=== PATIENT | male | born 2000 | race Hispanic/Latino ===

== ENCOUNTER 2023-07-12 13:16 | Emergency (ER) | payer OTHER ==
[~2023-07-12] VITALS: Ht 175.3 cm; Wt 79.4 kg
[2023-07-12 13:27] VITALS: BP 147/95; PULSE 87; RESP 18
[2023-07-12] MEDS: KETOROLAC 15MG/ML VIAL (15MG/ML) IM STA (14:19)
[2023-07-12] MEDS ORDERED: IBUP-2077 PO (16:39)
== END 2023-07-12 16:43 | disposition home or self-care (01) ==
LOC: EDH 13:16
DX: M25.561 Pain in right knee (principal)
CPT/HCPCS: 99284; 73590; 73564; 96372; J1885

== ENCOUNTER 2023-11-09 07:15 | Observation (INO) | payer OTHER ==
[2023-11-08 09:31] LABS: BASOPHILS # (AUTO) 0.06 K/uL (0.00-0.20); BASOPHILS % (AUTO) 0.7 % (0.0-5.0); EOSINOPHILS # (AUTO) 0.14 K/uL (0.00-0.70); EOSINOPHILS % (AUTO) 1.6 % (0.0-8.0); HEMATOCRIT 50.5 % (42-54); IMMATURE GRANULOCYTE ABSOLUTE 0.12 K/uL (0-1); LYMPHOCYTES # (AUTO) 1.7 K/uL (1.0-4.8); LYMPHOCYTES % (AUTO) 19.6 % (21.0-51.0); MEAN CORPUSCULAR HEMOGLOBIN 29.7 pg (27.0-33.0); MEAN CORPUSCULAR HGB CONC 33.5 g/dL (32.0-36.0); MEAN CORPUSCULAR VOLUME 88.8 fL (79-99); MONOCYTES # (AUTO) 0.8 K/uL (0.1-1.0); MONOCYTES % (AUTO) 8.9 % (3.0-13.0); NEUTROPHILS % (AUTO) 67.8 % (40.0-77.0); PLATELET COUNT (AUTO) 178 K/uL (130-400); RED BLOOD CELL COUNT(AUTO) 5.69 MIL/uL (4.50-6.20); RED CELL DISTRIBUTION WIDTH 12.6 % (11.0-15.5); WHITE BLOOD COUNT (AUTO) 8.9 K/uL (4.8-10.8)
[2023-11-08 09:41] LABS: POTASSIUM 4.1 mmol/L (3.5-5.1)
[2023-11-08 09:55] VITALS: BP 145/91; PULSE 57; RESP 18; TEMP 97.1
[2023-11-08 10:04] LABS: INR 0.98 (0.85-1.15); PROTHROMBIN TIME 10.6 SEC (9.6-11.6)
[2023-11-08 10:05] LABS: PARTIAL THROMBOPLASTIN TIME 28.6 SEC (26.3-35.5)
[2023-11-09] VITALS (25 sets, daily range): BP systolic 122–150; BP diastolic 77–92; PULSE 61–92; RESP 12–20; TEMP 98–99.1; O2SAT 95
[~2023-11-09] VITALS: Ht 175.3 cm; Wt 89.6 kg
[~2023-11-09 07:15] MED LIST: FENTanyl CITRate PF 50 MCG/1 ML 2ML VIAL ONE; GLYCOPYRROLATE 0.2 MG/ML 5 ML VIAL ONE; LIDOCAINE PF 100MG/5ML (2%) SYRINGE 5ML ONE; MIDAZOLAM HCL 1 MG/ML 2ML VIAL ONE; NEOSTIGMINE METHYLSULFATE 1MG/ML IV ONE; ROPivacaine 0.5% 5MG/ML 30ML ONE; ceFAZolin SODIUM 2 GM VIAL IVPB PRN; dexaMETHasone SOD PHOSPHATE 10MG/ML 1ML VIAL ONE; ondanSETRON 4MG INJ ONE; proPOFol 10 MG/ML 20ML VIAL IV ONE; rocuRONium bROMide 10MG/1ML 5ML VL ONE
[2023-11-09] MEDS: ceFAZolin SODIUM 2 GM VIAL ONE (07:23)
[2023-11-09] MEDS: LACTATED RINGERS 1000ML 1,000 ML IV ONE (07:24)
[2023-11-09] MEDS: ceFAZolin SODIUM 2 GM VIAL IVPB ONE (08:15)
[2023-11-09] MEDS ORDERED: FENTanyl CITRate PF 50 MCG/1 ML 2ML VIAL ONE ×2 (08:37→11:18)
[2023-11-09] MEDS ORDERED: ketaMINE 50MG/ML SYRINGE 50 MG/ML DISP.SYRIN ONE (08:43)
[2023-11-09] MEDS ORDERED: rocuRONium bROMide 10MG/1ML 5ML VL ONE (10:51)
[2023-11-09] MEDS ORDERED: ketOROlac 30MG VIAL (30MG/ML) ONE (11:24)
[2023-11-09] MEDS ORDERED: BUPIvacaine/PF 0.5% 30ML VIAL ONE (11:24)
[2023-11-09] MEDS ORDERED: FERROUS FUMARATE 324 MG TABLET PO PRN (12:00)
[2023-11-09] MEDS ORDERED: PoTASSium chl 10% ELIXIR 20MEQ 20 MEQ/15 ML UDCUP PO PRN (12:00)
[2023-11-09] MEDS ORDERED: DiphenhydrAMINE HCL 50 MG/ML VIAL IVP PRN (12:00)
[2023-11-09] MEDS ORDERED: PoTASSium chloRIDE 20MEQ/100ML 100 ML IV PRN (12:00)
[2023-11-09] MEDS: PSYLLIUM SEED 1 EACH PACKET PO SCH (12:00)
[2023-11-09] MEDS ORDERED: ketOROlac 15MG/ML VIAL (15MG/ML) IV PRN (12:00)
[2023-11-09] MEDS ORDERED: traMADol HCL 50 MG TABLET PO PRN (12:00)
[2023-11-09] MEDS ORDERED: PoTASSium chloRIDE 20MEQ ER 20 MEQ ERTAB PO PRN (12:00)
[2023-11-09] MEDS ORDERED: ceFAZolin SODIUM 2 GM VIAL IVPB SCH (12:00)
[2023-11-09] MEDS ORDERED: CALCIUM CARB 500MG PO PRN (12:00)
[2023-11-09] MEDS ORDERED: DiphenhydrAMINE HCL 25 MG CAPSULE PO PRN (12:00)
[2023-11-09] MEDS ORDERED: HYDR-4060 PO (13:38)
[2023-11-09] MEDS ORDERED: DOCU-116 PO (13:38)
[2023-11-09] MEDS: HYDROcodone/APAP 5/325 1 TAB TABLET ONE (14:33)
[2023-11-09] MEDS: 0.9%NACL 1000ML 1,000 ML IV SCH (16:57)
[2023-11-09] MEDS: ceFAZolin SODIUM 2 GM VIAL IVPB SCH (18:06)
[2023-11-09] MEDS: HYDROcodone/APAP 5/325 1 TAB TABLET PO PRN (19:09)
[2023-11-10 03:04] VITALS: BP_SYST 145; BP_SYST 158; BP_DIAS 71; BP_DIAS 76; PULSE 74; PULSE 78; RESP 18; TEMP 97.6; TEMP 98.5
[2023-11-10 05:22] LABS: HEMATOCRIT 37.5 % (42-54); MEAN CORPUSCULAR HGB CONC 34.7 g/dL (32.0-36.0); MEAN CORPUSCULAR VOLUME 86.6 fL (79-99); RED BLOOD CELL COUNT(AUTO) 4.33 MIL/uL (4.50-6.20); RED CELL DISTRIBUTION WIDTH 12.7 % (11.0-15.5); WHITE BLOOD COUNT (AUTO) 13.3 K/uL (4.8-10.8)
[2023-11-10 05:36] LABS: POTASSIUM 3.6 mmol/L (3.5-5.1)
[2023-11-10 08:00] VITALS: BP 147/90; PULSE 67; RESP 20; TEMP 98.3
[2023-11-10] MEDS: polyETHYLene GLYCol 3350 17 GM POWD.PACK PO SCH (08:40)
[2023-11-11] MEDS ORDERED: BisaCODYL 5 MG TABLET.DR PO PRN (12:00)
[2023-11-12] MEDS ORDERED: BisaCODYL 10 MG SUPP.RECT RC PRN (12:00)
== END 2023-11-10 12:45 | disposition home or self-care (01) ==
LOC: DAH 07:15 → DAHIP 07:16 → DAH 07:16 → EDSTATUS 09:00 → 4CH 15:20
PROVIDERS: ADMIT Student in an Organized Health Care Education/Training Program; ATTEND Student in an Organized Health Care Education/Training Program
DX: S82.251 Displaced comminuted fracture of shaft of right tibia (principal); M25.561 Pain in right knee; Z86.2 Personal history of diseases of the blood and blood-forming organs and certain disorders involving the immune mechanism; Z79.899 Other long term (current) drug therapy; X58.XXXD Exposure to other specified factors, subsequent encounter
CPT/HCPCS: 80048 ×2; 85025; 85610; 85730; 36415 ×2; 87641; 27720; 96365; 73590; 97161; 97116 ×2; 97530 ×2; 96366; 85027; C1713 ×5; G0378 ×21; J7120 ×2; A4215 ×2; A4649 ×3; J3010 ×3; J1100; J3490 ×4; J2001; J2250; J2704; J2405; J1885; J2710; J0665; J2795; J0690 ×4; A6223; A4930; A6255; A5120; A4223; A4222; A4221; A4663

== ENCOUNTER → 2024-02-07 | Outpatient (CLI) | payer OTHER ==
[~2024-02-07] MED LIST changes: +DOCU-116 PO; -FENTanyl CITRate PF 50 MCG/1 ML 2ML VIAL ONE; -GLYCOPYRROLATE 0.2 MG/ML 5 ML VIAL ONE; +HYDR-4060 PO; -LIDOCAINE PF 100MG/5ML (2%) SYRINGE 5ML ONE; -MIDAZOLAM HCL 1 MG/ML 2ML VIAL ONE; -NEOSTIGMINE METHYLSULFATE 1MG/ML IV ONE; -ROPivacaine 0.5% 5MG/ML 30ML ONE; -ceFAZolin SODIUM 2 GM VIAL IVPB PRN; -dexaMETHasone SOD PHOSPHATE 10MG/ML 1ML VIAL ONE; -ondanSETRON 4MG INJ ONE; -proPOFol 10 MG/ML 20ML VIAL IV ONE; -rocuRONium bROMide 10MG/1ML 5ML VL ONE
== END | disposition home or self-care (01) ==
LOC: LAB 12:05
PROVIDERS: ATTEND Student in an Organized Health Care Education/Training Program
DX: T81.49XA Infection following a procedure, other surgical site, initial encounter (principal); X58.XXXA Exposure to other specified factors, initial encounter; Y93.89 Activity, other specified; Y92.89 Other specified places as the place of occurrence of the external cause; Y99.8 Other external cause status
CPT/HCPCS: 87070; 87076; 87205

== ENCOUNTER 2024-02-29 05:54 | Day surgery (SDC) | payer OTHER ==
[2024-02-27 12:59] LABS: BASOPHILS # (AUTO) 0.03 K/uL (0.00-0.20); BASOPHILS % (AUTO) 0.5 % (0.0-5.0); EOSINOPHILS # (AUTO) 0.05 K/uL (0.00-0.70); EOSINOPHILS % (AUTO) 0.8 % (0.0-8.0); HEMATOCRIT 49.8 % (42-54); IMMATURE GRANULOCYTE ABSOLUTE 0.04 K/uL (0-1); LYMPHOCYTES # (AUTO) 1.3 K/uL (1.0-4.8); MEAN CORPUSCULAR HEMOGLOBIN 24.9 pg (27.0-33.0); MEAN CORPUSCULAR HGB CONC 31.5 g/dL (32.0-36.0); MEAN CORPUSCULAR VOLUME 78.9 fL (79-99); MONOCYTES # (AUTO) 0.5 K/uL (0.1-1.0); MONOCYTES % (AUTO) 7.6 % (3.0-13.0); NEUTROPHILS # (AUTO) 4.4 K/uL (1.8-7.7); NEUTROPHILS % (AUTO) 69.5 % (40.0-77.0); PLATELET COUNT (AUTO) 212 K/uL (130-400); RED BLOOD CELL COUNT(AUTO) 6.31 MIL/uL (4.50-6.20); RED CELL DISTRIBUTION WIDTH 15.8 % (11.0-15.5); WHITE BLOOD COUNT (AUTO) 6.3 K/uL (4.8-10.8)
[2024-02-27 13:11] LABS: POTASSIUM 4.6 mmol/L (3.5-5.1)
[2024-02-27 13:12] LABS: INR 0.95 (0.85-1.15); PROTHROMBIN TIME 10.7 SEC (9.6-11.6)
[2024-02-27 13:13] LABS: PARTIAL THROMBOPLASTIN TIME 28.8 SEC (26.3-35.5)
[2024-02-27 13:25] VITALS: BP 153/87; PULSE 71; RESP 14; TEMP 98.1
[2024-02-27 15:19] LABS: ERYTHROCYTE SEDIMENTATION RATE 1 MM/HR (0-15)
[~2024-02-29] VITALS: Ht 175.3 cm; Wt 86.9 kg
[2024-02-29] VITALS (12 sets, daily range): BP systolic 106–128; BP diastolic 55–80; PULSE 51–65; RESP 15–18; TEMP 97–97.4
[2024-02-29] MEDS ORDERED: acetaMINOPHEN 100 ML ONE (06:35)
[2024-02-29] MEDS ORDERED: FAMOTIDINE 20MG VIAL IV ONE (06:35)
[2024-02-29] MEDS ORDERED: ketaMINE 50MG/ML SYRINGE 50 MG/ML DISP.SYRIN ONE (06:38)
[2024-02-29] MEDS ORDERED: LIDOCAINE PF 100MG/5ML (2%) SYRINGE 5ML ONE (06:45)
[2024-02-29] MEDS ORDERED: proPOFol 10 MG/ML 20ML VIAL IV ONE (06:46)
[2024-02-29] MEDS ORDERED: rocuRONium bROMide 10MG/1ML 5ML VL ONE (06:46)
[2024-02-29] MEDS ORDERED: FENTanyl CITRate PF 50 MCG/1 ML 2ML VIAL ONE (06:46)
[2024-02-29] MEDS: ceFAZolin SODIUM 2 GM VIAL ONE (07:32)
[2024-02-29] MEDS: LACTATED RINGERS 1000ML 1,000 ML IV ONE (07:32)
[2024-02-29] MEDS ORDERED: ceFAZolin SODIUM 1 GM VIAL ONE (07:58)
[2024-02-29] MEDS ORDERED: dexaMETHasone SOD PHOSPHATE 10MG/ML 1ML VIAL ONE (08:01)
[2024-02-29] MEDS ORDERED: ondanSETRON 4MG INJ ONE (08:02)
[2024-02-29] MEDS ORDERED: ACET-2079 PO (09:14)
[2024-02-29] MEDS ORDERED: GLYCOPYRROLATE 0.2 MG/ML 5 ML VIAL ONE (09:15)
[2024-02-29] MEDS ORDERED: NEOSTIGMINE METHYLSULFATE 1MG/ML IV ONE (09:15)
[2024-02-29] MEDS: BUPIvacaine/PF 0.25% 30ML VIAL IJ ONE (09:25)
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
--- NOTE | 2024-02-29 11:49 | HMCIMG ---
TIBIA/FIBULA 2VWS RT HISTORY: ORIF COMPARISON: None TECHNIQUE: Fluoroscopic images of right tibia and fibula were obtained. FINDINGS: Please see procedure report by referring physician. IMPRESSION: 1. Findings as described above.
== END 2024-02-29 10:44 | disposition home or self-care (01) ==
LOC: DAH 05:54
PROVIDERS: ATTEND Student in an Organized Health Care Education/Training Program
DX: S82.251 Displaced comminuted fracture of shaft of right tibia (principal); M96.671 Fracture of tibia or fibula following insertion of orthopedic implant, joint prosthesis, or bone plate, right leg; M79.661 Pain in right lower leg; L08.89 Other specified local infections of the skin and subcutaneous tissue; V89.2XXD Person injured in unspecified motor-vehicle accident, traffic, subsequent encounter; Y83.1 Surgical operation with implant of artificial internal device as the cause of abnormal reaction of the patient, or of later complication, without mention of misadventure at the time of the procedure
CPT/HCPCS: 80048; 85025; 85610; 85730; 85651; 86140; 36415; 87641; 11044; 20680; 87070; 87076; 87086; 87186; 87205; 88300; 73590; A4663; J7030; A4649; J7120; J3490 ×4; J3010; J1100; J0665; J2003; J2704; J2405; J2710; J0690; A6223; A4930; C1713; A5120; A4215; A4223; A4222; A4221; A6450

== ENCOUNTER 2024-03-21 08:40 | Day surgery (SDC) | payer OTHER ==
[2024-03-20 11:33] VITALS: BP 149/80; PULSE 89; RESP 18; TEMP 97.9
[2024-03-20 12:27] LABS: BASOPHILS # (AUTO) 0.06 K/uL (0.00-0.20); BASOPHILS % (AUTO) 0.6 % (0.0-5.0); EOSINOPHILS # (AUTO) 0.11 K/uL (0.00-0.70); EOSINOPHILS % (AUTO) 1.2 % (0.0-8.0); HEMATOCRIT 46.1 % (42-54); IMMATURE GRANULOCYTE ABSOLUTE 0.12 K/uL (0-1); LYMPHOCYTES # (AUTO) 1.2 K/uL (1.0-4.8); LYMPHOCYTES % (AUTO) 13.1 % (21.0-51.0); MEAN CORPUSCULAR HEMOGLOBIN 24.9 pg (27.0-33.0); MEAN CORPUSCULAR HGB CONC 31.5 g/dL (32.0-36.0); MEAN CORPUSCULAR VOLUME 79.1 fL (79-99); MONOCYTES # (AUTO) 0.5 K/uL (0.1-1.0); MONOCYTES % (AUTO) 5.2 % (3.0-13.0); NEUTROPHILS # (AUTO) 7.3 K/uL (1.8-7.7); NEUTROPHILS % (AUTO) 78.6 % (40.0-77.0); PLATELET COUNT (AUTO) 364 K/uL (130-400); RED BLOOD CELL COUNT(AUTO) 5.83 MIL/uL (4.50-6.20); RED CELL DISTRIBUTION WIDTH 15.9 % (11.0-15.5); WHITE BLOOD COUNT (AUTO) 9.3 K/uL (4.8-10.8)
[2024-03-20 12:40] LABS: INR 0.97 (0.85-1.15); PROTHROMBIN TIME 10.9 SEC (9.6-11.6)
[2024-03-20 12:41] LABS: PARTIAL THROMBOPLASTIN TIME 30.8 SEC (26.3-35.5)
[2024-03-20 12:47] LABS: ALBUMIN 3.3 g/dL (3.5-5.0)
[2024-03-20 13:42] LABS: ERYTHROCYTE SEDIMENTATION RATE 45 MM/HR (0-15)
[~2024-03-21] VITALS: Ht 175.3 cm; Wt 83.8 kg
[2024-03-21] VITALS (14 sets, daily range): BP systolic 125–154; BP diastolic 78–89; PULSE 70–92; RESP 13–18; TEMP 97.1–97.7
[~2024-03-21 08:40] MED LIST changes: +ACET-2079 PO; -DOCU-116 PO; -HYDR-4060 PO; +LEVO-70 PO
[2024-03-21] MEDS: LACTATED RINGERS 1000ML 1,000 ML IV ONE (09:38)
[2024-03-21] MEDS: ceFAZolin SODIUM 2 GM VIAL ONE (09:38)
[2024-03-21] MEDS ORDERED: LIDOCAINE PF 100MG/5ML (2%) SYRINGE 5ML ONE (10:29)
[2024-03-21] MEDS ORDERED: rocuRONium bROMide 10MG/1ML 5ML VL ONE (10:29)
[2024-03-21] MEDS ORDERED: ondanSETRON 4MG INJ ONE (10:29)
[2024-03-21] MEDS ORDERED: MIDAZOLAM HCL 1 MG/ML 2ML VIAL ONE (10:29)
[2024-03-21] MEDS ORDERED: proPOFol 10 MG/ML 20ML VIAL IV ONE (10:29)
[2024-03-21] MEDS ORDERED: dexaMETHasone SOD PHOSPHATE 4 MG/ML 1ML VIAL ONE (10:29)
[2024-03-21] MEDS ORDERED: FENTanyl CITRate PF 50 MCG/1 ML 2ML VIAL ONE ×2 (10:30→11:34)
[2024-03-21] MEDS ORDERED: ketOROlac 30MG VIAL (30MG/ML) ONE (10:32)
[2024-03-21] MEDS ORDERED: ROPivacaine 0.5% 5MG/ML 30ML ONE (10:35)
[2024-03-21] MEDS ORDERED: SUGAMMADEX SODIUM 200 MG/2 ML VIAL IV ONE (13:17)
[2024-03-21] MEDS: MEPERIDINE-PF 50 MG/ML SYG ONE (14:14)
[2024-03-21] MEDS ORDERED: HYDR-4060 PO (14:23)
[2024-03-21] MEDS ORDERED: LEVO-70 PO (14:23)
--- NOTE | 2024-03-21 14:50 | NUR ---
dressing: dressing to right leg dry/intact with no active bleeding present. immobilizer in place to rt leg.
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
--- NOTE | 2024-03-21 15:48 | HMCIMG ---
TIBIA/FIBULA 2VWS RT REASON: ORIF RIGHT TIBIA, HARDWARE REMOVAL, SX TECHNIQUE: 14 surgical spot views were obtained. These document hardware removal procedure right tibia and fibula. Fluoroscopy time was 60.4 seconds. IMPRESSION: 1. Documentation of hardware removal procedure right tibia.
== END 2024-03-21 15:20 | disposition home or self-care (01) ==
LOC: DAH 08:40
PROVIDERS: ATTEND Student in an Organized Health Care Education/Training Program
DX: T84.622A Infection and inflammatory reaction due to internal fixation device of right tibia, initial encounter (principal); S82.251 Displaced comminuted fracture of shaft of right tibia; M79.661 Pain in right lower leg; G89.18 Other acute postprocedural pain; E66.9 Obesity, unspecified; Z79.899 Other long term (current) drug therapy; Z87.898 Personal history of other specified conditions; Z68.26 Body mass index [BMI] 26.0-26.9, adult; Z98.890 Other specified postprocedural states; Y83.8 Other surgical procedures as the cause of abnormal reaction of the patient, or of later complication, without mention of misadventure at the time of the procedure; Y92.89 Other specified places as the place of occurrence of the external cause
CPT/HCPCS: 82040; 80048; 85025; 85610; 85730; 85651; 84134; 86140; 36415; 87641; 11044; 97161; 20680; 87070 ×2; 87076 ×2; 87086; 87186; 87205 ×2; 73590; 97116; 97530 ×2; J1100; J1885; A4663; J7120; J3010 ×2; J3490; J2003; J2250; J2704; J2405; J2175; J2795; J0690; A6223; A4649; A5120; A4215; A4223; A4222; A4221

== ENCOUNTER 2024-04-14 07:06 | Inpatient (IN) | payer OTHER ==
[~2024-04-14] VITALS: Ht 175.3 cm; Wt 85.0 kg
[~2024-04-14 07:06] MED LIST changes: -ACET-2079 PO; +HYDR-4060 PO
[2024-04-14] MEDS ORDERED: MAG/ALUM/SIMETH 30 ML UDCUP PO PRN (08:30)
[2024-04-14] MEDS ORDERED: acetaMINOPHEN 325 MG TAB PO PRN (08:30)
[2024-04-14] MEDS ORDERED: MAGNESIUM HYDROXIDE 30 ML/UDCUP PO PRN (08:30)
[2024-04-14] MEDS ORDERED: acetaMINOPHEN WITH coDEINE 1 TAB TAB PO PRN ×2 (08:30)
[2024-04-14 08:48] LABS: HEMATOCRIT 44.7 % (42-54); MEAN CORPUSCULAR HGB CONC 31.3 g/dL (32.0-36.0); MEAN CORPUSCULAR VOLUME 79.8 fL (79-99); PLATELET COUNT (AUTO) 236 K/uL (130-400); RED CELL DISTRIBUTION WIDTH 16.1 % (11.0-15.5); WHITE BLOOD COUNT (AUTO) 7.1 K/uL (4.8-10.8)
[2024-04-14 08:57] LABS: CREATININE 0.9 mg/dL (0.5-1.3); POTASSIUM 3.9 mmol/L (3.5-5.1)
[2024-04-14 09:43] LABS: BAND NEUTROPHILS % (MANUAL) 3 % (0-2); LYMPHOCYTES % (MANUAL) 20 % (22-44); MAN.DIFF COMMENT-IMPRESSION MANUAL DIFFERENTIAL; MONOCYTES % (MANUAL) 7 % (2-9); PLATELET MORPHOLOGY COMMENT ADEQUATE; SEGMENTED NEUTROPHILS % 70 % (40-70); TOTAL CELLS COUNTED 100; WBC MORPHOLOGY CONSISTENT W/DIFF
[2024-04-14 10:07] LABS: ERYTHROCYTE SEDIMENTATION RATE 5 MM/HR (0-15)
--- NOTE | 2024-04-14 10:31 | NUR ---
DR KHALIL MADE AWARE OF INFECTIOUS DISEASE CONSULT
[2024-04-14] MEDS: PENICILLIN V POTASSIUM 500 MG TABLET PO SCH (11:36)
[2024-04-14] MEDS: DEXTROSE 5 % AND 0.9 % NACL 1,000 ML IV SCH (11:37)
[2024-04-14] MEDS: levoFLOXacin 500 MG TABLET PO SCH (11:37)
--- NOTE | 2024-04-14 12:39 | HMCIMG ---
CHEST 1VW HISTORY: PICC line placement COMPARISON: None FINDINGS: A frontal projection of the chest was obtained. No acute pulmonary infiltrates is seen. The heart is borderline enlarged. All the lines and tubes are again seen in place. PICC line is seen entering from the right with distal tip in plane of the superior vena cava. No evidence of aortic calcification is seen. IMPRESSION: 1. No acute pulmonary infiltrate is seen.
[2024-04-14] MEDS ORDERED: VANCOMYCIN PROTOCOL PER PHARMACY IV SCH (13:30)
[2024-04-14] MEDS: ceFEPime HCL 1 GM VIAL IVPB SCH (13:41)
--- NOTE | 2024-04-14 15:15 | NUR ---
DR KHALIL HERE TO SEE THE PT W/HIS RESIDENTS.
[2024-04-14] MEDS: VANCOMYCIN 1G/250ML KIT 500 ML IV ONE (15:34)
[2024-04-14] MEDS: VANCOMYCIN 2GM/500 ML BAG 500 ML IV ONE (15:34)
--- NOTE | 2024-04-14 16:27 | HMCIMG ---
TIBIA/FIBULA 2VWS RT HISTORY: Removal of implants COMPARISON: None TECHNIQUE: 3 images of right tibia and fibula were obtained. FINDINGS: Intramedullary pilar is seen through the fracture site of the right tibia. Healing fracture is seen of right distal fibula. There is no acute displaced fracture or dislocation. Degenerative changes are seen. IMPRESSION: 1. Findings as described above.
--- NOTE | 2024-04-14 16:50 | NUR ---
SHANTE PAUSED FOR CHEST AND FACE REDNESS WITH GENERALIZED ITCHING. DR KHALIL PAGED.
--- NOTE | 2024-04-14 16:51 | NUR ---
ORDERS RECIEVED BY DR KHALIL
[2024-04-14] MEDS: DiphenhydrAMINE HCL 50 MG/ML VIAL IV SCH (16:58)
[2024-04-14] MEDS: DiphenhydrAMINE HCL 50 MG/ML VIAL ONE (16:58)
[2024-04-14] MEDS ORDERED: GADOTERATE MEGLUMINE 10 MMOL/20 ML VIAL IV ONE (20:02)
[2024-04-14 21:15] VITALS: BP 135/83; PULSE 70; RESP 21; TEMP 97.9
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
[2024-04-14 23:26] VITALS: BP 120/75; PULSE 65; RESP 18; TEMP 98.2
[2024-04-15] VITALS (8 sets, daily range): BP systolic 115–130; BP diastolic 64–76; PULSE 65–72; RESP 16–20; TEMP 97.7–98.6; O2SAT 98
[2024-04-15] MEDS: VANCOMYCIN 1G/250ML KIT 250 ML IV SCH (01:19)
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
--- NOTE | 2024-04-15 08:44 | HMCIMG ---
MR TIBFIB RIGHT WWO HISTORY: Osteomyelitis COMPARISON: None TECHNIQUE: MRI of the right tibia and fibula was performed utilizing multiple pulse sequences in axial, coronal and sagittal planes. Patient was given Clariscan through intravenous route. FINDINGS: Deformity is seen of the right tibia and fibula consistent with fractures. Abnormal increased signal intensity with enhancement is seen throughout the right tibia suspicious for osteomyelitis in the proper clinical setting. There also be related to bone bruise (microtrabecular fracture). There is fracture involving the mid tibia. Paramagnetic susceptibility artifacts are noted in the proximal tibia and fibular region with postop screws. IMPRESSION: 1. Deformity is seen of the right tibia and fibula consistent with fractures. Abnormal increased signal intensity is seen throughout the right tibia suspicious for osteomyelitis in the proper clinical setting. There is abnormal enhancement in the entire tibia.
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
--- NOTE | 2024-04-15 20:07 | PN ---
SUBJECTIVE: The patient was admitted for assessment and treatment of right tibia and fibula fracture, associated with chronic drainage from the right leg. The patient was started on IV antibiotics after ____ failures with p.o. treatment. PHYSICAL EXAMINATION: GENERAL: He is awake, alert, oriented in person, time and place, not in distress. VITAL SIGNS: In the chart. HEENT: Normocephalic, atraumatic. LUNGS: Clear to auscultation. HEART: S1, S2 are distant. ABDOMEN: Soft, nontender. EXTREMITIES: There is a surgical scar in the right lower extremity. There are small ulcerations on the anterior leg area with seropurulent discharge. LABORATORY DATA: Labs reviewed. ASSESSMENT AND PLAN: Chronic right lower extremity cellulitis with possible osteomyelitis. Continue with IV antibiotics as per ID. MRI of the right tibia is pending. The patient will continue with IV antibiotics as per ID. Follow up in my office after discharge. DOS: 04/15/2024 TID: [id number] RECEIPT: [id number] MTD
[2024-04-16 04:20] VITALS: BP 117/64; PULSE 51; RESP 19; TEMP 97.7
[2024-04-16 08:00] VITALS: BP 129/81; PULSE 74; RESP 19; TEMP 97.8; O2SAT 99
[2024-04-16 12:00] VITALS: BP 129/71; PULSE 61; RESP 19; TEMP 98
--- NOTE | 2024-04-16 16:13 | NUR ---
D/C PLAN CM spoke to patient at bedside regarding d/c planning. Reports he is independent with ADLs and lives with spouse. Denies having any home services. States he has been ambulating with crutches. Patient aware of ID recommendations for fpc IV abx. States he prefers to return home. Patient is willing to be placed at SNF if no other option covered by insurance. States he understands there may be an out of pocket expense with home health arrangements. CM explained that benefits will need to be verified by home health agency and may be responsible for a copay per visit. CM also explained that IV abx may also not be covered at 100% and may need to pay copay for medications. Verbalized understanding. CM also discussed possible outpatient infusions at Dr. Whiting office or here at [facility]. CM explained that [facility] would only be an option if medication is ordered once daily. Verbalized understanding to all of the above options. CM obtained [facility] and [facility] CM explained difficulty in providing an estimate of out of pocket responsibility due to pending MD scripts for IV abx. Verbalized understanding. Male family member at bedside states he will update patient's father regarding above plan. CM then discussed plan of care with Dr. Whiting. States plan is to continue current IV abx for 6 weeks. CM sent referral to [facility] and [facility] for review. Pending call back regarding financial clearance. CM to f/u. Addendum: 04/16/24 at 1621 by JUAN LUIS PATEL CM Amended: Links added.
[2024-04-16 16:18] VITALS: BP 128/89; PULSE 60; RESP 19; TEMP 98
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
[2024-04-16 20:00] VITALS: BP 126/73; PULSE 74; RESP 20; TEMP 98.4; O2SAT 97
--- NOTE | 2024-04-16 23:06 | PN ---
SUBJECTIVE: The patient without any fever, chills, seizures. No chest pain. No nausea or vomiting. Continued with vancomycin, cefepime, and levofloxacin. OBJECTIVE: GENERAL: Currently, awake, alert, oriented in person, time and place, not in distress. VITAL SIGNS: In the chart. HEENT: Normocephalic, atraumatic. LUNGS: Clear to auscultation. HEART: S1, S2 are distant. ABDOMEN: Soft and nontender. EXTREMITIES: No clubbing, cyanosis. IMAGING STUDIES: X-ray shows intramedullary pilar was seen through the fracture site of the right tibia. Healing fracture is seen on the right distal fibula. There is no acute displaced fracture or dislocation. LABORATORY DATA: Cultures are still pending. ASSESSMENT AND PLAN: Right tibial and fibular fracture, status post hardware removal. Continue with physical therapy, recommendation by Orthopedics. Osteomyelitis of right tibia. Continue with current antibiotics. Plan to discharge when arrangements are completed. He will need 6 weeks of IV antibiotic therapy. DOS: 04/16/2024 TID: [id number] RECEIPT: [id number] MTDD
[2024-04-17] VITALS: BP 134/72; PULSE 60; RESP 20; TEMP 98
[2024-04-17 04:00] VITALS: BP 124/71; PULSE 65; RESP 20; TEMP 97.5
[2024-04-17 08:00] VITALS: BP 119/70; PULSE 68; RESP 19; TEMP 97.9; O2SAT 96
[2024-04-17 09:26] LABS: POTASSIUM 4.1 mmol/L (3.5-5.1)
[2024-04-17 12:00] VITALS: BP 123/80; PULSE 68; RESP 14; TEMP 97.6
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
[2024-04-17 16:00] VITALS: BP 115/76; PULSE 72; RESP 17; TEMP 98.1
[2024-04-17 20:00] VITALS: BP 132/73; PULSE 76; RESP 20; TEMP 97.7; O2SAT 99
--- NOTE | 2024-04-17 20:37 | PN ---
SUBJECTIVE: Comfortable, afebrile. No chest pain or palpitations. No nausea or vomiting. Currently awake, alert, oriented in person, time and place. Continued with IV antibiotics. OBJECTIVE: VITAL SIGNS: In the chart. HEENT: Normocephalic, atraumatic. LUNGS: Clear to auscultation. HEART: S1, S2 are distant. ASSESSMENT AND PLAN: * Osteomyelitis of the right tibia. Continue with IV antibiotics as per ID. Pending results of cultures to adjust antibiotic therapy. * Right leg cellulitis. Continue current antibiotics. * Status post removal of hardware due to infection. Continue current antibiotics. DOS: 04/17/2024 TID: [id number] RECEIPT: [id number] MTDD
[2024-04-18] VITALS (7 sets, daily range): BP systolic 114–135; BP diastolic 58–82; PULSE 61–72; RESP 18–19; TEMP 97–98.5; O2SAT 98–99
[2024-04-18 05:46] LABS: MEAN CORPUSCULAR HEMOGLOBIN 25.1 pg (27.0-33.0); MEAN CORPUSCULAR HGB CONC 32.8 g/dL (32.0-36.0); MEAN CORPUSCULAR VOLUME 76.6 fL (79-99); RED BLOOD CELL COUNT(AUTO) 5.22 MIL/uL (4.50-6.20); RED CELL DISTRIBUTION WIDTH 15.5 % (11.0-15.5)
[2024-04-18 06:10] LABS: CREATININE 0.8 mg/dL (0.5-1.3)
--- NOTE | 2024-04-18 13:40 | PN ---
Patient reports doing well. Denies leg pain or swelling. Reports that he tried to ambulate with out his crutches. VSS, AF NAD A&Ox3 nonlabored breathing RLE: -incisions are clean dry and intact -no edema, no erythema -no tenderness at mid shaft Patient reports he was working on getting home health set up with case management. Nurse reports patient declined going to a sniff. Home health will be ready to accept him early next week 23-year-old male with right tibia osteomyelitis -tailor antibiotics as appropriate per Infectious Disease -arrangements for home health as [facility] case management Vitals/Labs Vital Signs Date Time Temp Pulse Resp B/P (MAP) Pulse Ox O2 Delivery O2 Flow Rate FiO2 04/18/24 12:00 97.9 71 18 134/76 99 Room Air 04/17/24 20:00 0 21 Laboratory Tests 04/18/24 05:39 Medications Current Medications Dextrose/Sodium Chloride 1,000 ml @ 50 mls/hr Q20H IV Last administered on 04/14/24at 11:37; Start 04/14/24 at 08:30; Stop 05/14/24 at 08:29 Acetaminophen/ Codeine Phosphate 1 tab Q4H PRN PO; Start 04/14/24 at 08:30; Stop 05/14/24 at 08:29 Acetaminophen/ Codeine Phosphate 2 tab Q4H PRN PO; Start 04/14/24 at 08:30; Stop 05/14/24 at 08:29 Magnesium Hydroxide 30 ml DAILY PRN PO; Start 04/14/24 at 08:30; Stop 05/14/24 at 08:29 Al Hydroxide/Mg Hydroxide 30 ml Q6H PRN PO; Start 04/14/24 at 08:30; Stop 05/14/24 at 08:29 Acetaminophen 650 mg Q6H PRN PO; Start 04/14/24 at 08:30; Stop 05/14/24 at 08:29 Levofloxacin 500 mg DAILY PO Last administered on 04/18/24at 09:58; Start 04/14/24 at 09:00; Stop 05/05/24 at 08:59 Penicillin V Potassium 500 mg BID PO Last administered on 04/14/24at 11:36; Start 04/14/24 at 09:00; Stop 04/14/24 at 13:31; Status DC Cefepime HCl 1 gm Q8H IVPB Last administered on 04/18/24at 05:46; Start 04/14/24 at 13:30; Stop 05/05/24 at 13:29 Vancomycin HCl 1 each AD IV; Start 04/14/24 at 13:30; Stop 04/28/24 at 13:29 Vancomycin HCl 500 ml @ 250 mls/hr ONCE ONCE IV Last administered on 04/14/24at 15:34; Start 04/14/24 at 14:00; Stop 04/14/24 at 15:59; Status DC Vancomycin HCl 250 ml @ 125 mls/hr Q8H IV Last administered on 04/18/24at 06:35; Start 04/14/24 at 23:00; Stop 05/05/24 at 22:59 Vancomycin HCl 500 ml @ As Directed STK-MED ONCE IV; Start 04/14/24 at 15:31; Stop 04/14/24 at 15:31; Status DC Diphenhydramine HCl 25 mg ONCE IV Last administered on 04/14/24at 16:58; Start 04/14/24 at 17:00; Stop 04/14/24 at 21:00; Status DC Diphenhydramine HCl 50 mg STK-MED ONCE .ROUTE; Start 04/14/24 at 16:54; Stop 04/14/24 at 16:55; Status DC Gadoterate Meglumine 10 mmol STK-MED ONCE IV; Start 04/14/24 at 20:02; Stop 04/14/24 at 20:03; Status DC BATSHEVA PARKER MD Apr 18, 2024 13:40
--- NOTE | 2024-04-18 15:46 | NUR ---
CM NOTE: POC PT PREFERRED TO GO HOME, WILLING TO LEARN AND ADMINISTER IV ABX IN BETWEEN HH. PT CURRENTLY PENDING APPROVAL FOR [facility] FOR DAILY IV ABX, HH TO TEACH HOW TO ADMINISTER AND CARE FOR PICC AND ABX. PT CURRENTLY PENDING APPROVAL FOR [facility] FOR VANCO AND CEFEPIME 1GM Q8HRS X 6 WEEKS. PER DENISSE Nguyen/ADVID ABLE TO SPEAK TO [facility] AND WILL GIVE AUTH FOR HH. REP STILL PENDING [employer] TO SEND REQUEST AND CPT CODE AT THIS TIME. ANTICIPATE DC SUNDAY. CM TO CONTINUE TO FOLLOW UP.
--- NOTE | 2024-04-18 19:04 | PN ---
SUBJECTIVE: The patient examined at bedside, comfortable, afebrile. No chest pain, palpitations. No nausea or vomiting. Continued IV therapy is pending insurance approval for IV therapy. OBJECTIVE: GENERAL: Currently awake, alert, oriented in person, time and place, not in distress. VITAL SIGNS: In the chart. HEENT: Normocephalic, atraumatic. LUNGS: Clear to auscultation. HEART: S1, S2 are distant. ABDOMEN: Soft and nontender. No masses. EXTREMITIES: No clubbing, cyanosis. LABORATORY DATA: WBC count 8, hemoglobin 13.1, platelets 175. Sodium 141, potassium 4, BUN 11, creatinine 0.8. ASSESSMENT AND PLAN: * Osteomyelitis of right tibia. Continue IV antibiotics as per ID. Pending results of cultures, pending approval of insurance for IV antibiotic therapy for 6 weeks. * Right leg cellulitis. Continue current antibiotics. * Status post removal of hardware from right leg. Continue recommendations by Orthopedics. DOS: 04/18/2024 TID: [id number] RECEIPT: [id number] [facility]
[2024-04-19] VITALS (7 sets, daily range): BP systolic 97–138; BP diastolic 51–84; PULSE 63–80; RESP 16–18; TEMP 97.6–98.5; O2SAT 96–98
--- NOTE | 2024-04-19 07:16 | PN ---
DATE OF SERVICE: 04/18/2024. INFECTIOUS DISEASE FOLLOWUP NOTE SUBJECTIVE: The patient is seen and examined at bedside today. The patient has no fever, no chills. No bleeding tendency. No sore throat or rhinorrhea. Tolerated antibiotic. Denied depression. No suicidal ideation. OBJECTIVE: VITAL SIGNS: Temperature today 97.4. EYES: No icterus. Pupils equal and reactive. HENT: No oral thrush seen. Moist oral mucosa. NECK: Supple. No JVD or thyromegaly. LUNGS: Good air entry. No rales. No rhonchi. CARDIOVASCULAR SYSTEM: S1, S2 regular. No murmur heard. ABDOMEN: Full, soft, nontender. Bowel sounds present. CENTRAL NERVOUS SYSTEM: Awake, alert, oriented x 3. No focal deficits. SKIN: No rashes, no itchiness. LYMPHATIC: There is right inguinal lymphadenopathy. BACK: No deformity. No pressure ulcer. EXTREMITIES: Surgical incision to the right leg is healed. No drainage is seen. ASSESSMENT: A 23-year-old male with multiple problems include: * Right tibia osteomyelitis. * Possible hardware infection. * Obesity. PLAN: * Continue cefepime. * Continue vancomycin. * Continue pain management. * Continue nutritional support. * Monitor electrolytes. TID: [id number] RECEIPT: [id number]
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
--- NOTE | 2024-04-19 21:09 | PN ---
SUBJECTIVE: The patient is receiving antibiotics for right tibial osteomyelitis. The patient has removal of the hardware done. The patient voicing no complaints at this time. OBJECTIVE: VITAL SIGNS: Blood pressure is 135/69, pulse is 70, respirations are 14. LUNGS: Mostly decreased breath sounds. No wheeze or rhonchi. HEART: Regular. ABDOMEN: Soft, nontender. ASSESSMENT AND PLAN: Right tibia, lower extremity osteomyelitis. The patient is on antibiotics. Rest of diagnosis remains the same. TID: [id number] RECEIPT: [id number]
[2024-04-20] VITALS (8 sets, daily range): BP systolic 109–139; BP diastolic 64–92; PULSE 62–73; RESP 16–18; TEMP 97.6–98.5; O2SAT 99–100
--- NOTE | 2024-04-20 20:17 | PN ---
SUBJECTIVE: The patient denies any leg pains at this time. The patient is pending approval for IV antibiotics at home. OBJECTIVE: VITAL SIGNS: Blood pressure 110/60, pulse 60, respirations 14. LUNGS: Mostly decreased breath sounds. No wheeze or rhonchi. HEART: Regular rate. ABDOMEN: Soft, nontender. ASSESSMENT AND PLAN: Right tibial osteomyelitis and right lower extremity cellulitis, which is stable at this time, removal of the hardware. The patient is pending a home IV antibiotic approval. TID: [id number] RECEIPT: [id number] cc:
[2024-04-21] VITALS (8 sets, daily range): BP systolic 116–145; BP diastolic 67–85; PULSE 61–79; RESP 17–20; TEMP 97.3–98; O2SAT 99
[2024-04-21 13:57] LABS: BASOPHILS # (AUTO) 0.03 K/uL (0.00-0.20); BASOPHILS % (AUTO) 0.5 % (0.0-5.0); EOSINOPHILS # (AUTO) 0.16 K/uL (0.00-0.70); EOSINOPHILS % (AUTO) 2.6 % (0.0-8.0); HEMATOCRIT 41.8 % (42-54); IMMATURE GRANULOCYTE ABSOLUTE 0.03 K/uL (0-1); LYMPHOCYTES # (AUTO) 1.4 K/uL (1.0-4.8); LYMPHOCYTES % (AUTO) 22.5 % (21.0-51.0); MEAN CORPUSCULAR HGB CONC 31.6 g/dL (32.0-36.0); MEAN CORPUSCULAR VOLUME 79.2 fL (79-99); MONOCYTES # (AUTO) 0.5 K/uL (0.1-1.0); MONOCYTES % (AUTO) 7.9 % (3.0-13.0); NEUTROPHILS # (AUTO) 4.1 K/uL (1.8-7.7); PLATELET COUNT (AUTO) 167 K/uL (130-400); RED BLOOD CELL COUNT(AUTO) 5.28 MIL/uL (4.50-6.20); RED CELL DISTRIBUTION WIDTH 15.3 % (11.0-15.5); WHITE BLOOD COUNT (AUTO) 6.2 K/uL (4.8-10.8)
--- NOTE | 2024-04-21 15:43 | NUR ---
cm note spoke to angelina with [facility] and states is still pending approval.states that dr Narvaez usually doesn't work with them so have asked Dr springer if will assist. also called [facility] and spoke to antwon ross, [facility] is still pending the approval from [facility]. for iv antibiotics.
--- NOTE | 2024-04-21 18:58 | PN ---
SUBJECTIVE: The patient is pending approval from insurance to continue with IV antibiotics for treatment of tibial osteomyelitis. There has been no fever, chills. No chest pain or palpitations. No nausea or vomiting. OBJECTIVE: GENERAL: He is currently, awake, alert, oriented in person, time, and place, not in distress. VITAL SIGNS: In the chart. HEENT: Normocephalic, atraumatic. LUNGS: Clear to auscultation. HEART: S1, S2 are distant. ABDOMEN: Soft, nontender. EXTREMITIES: No clubbing, cyanosis. ASSESSMENT AND PLAN: * Right leg cellulitis, improving. Continue current antibiotics. * Right tibial osteomyelitis. Continue antibiotics, to complete 6 weeks. Pending approval from insurance. To continue treatment as an outpatient. DOS:04/21/2024 TID: [id number] RECEIPT: [id number] MTDD
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
[2024-04-22] VITALS (8 sets, daily range): BP systolic 112–137; BP diastolic 74–86; PULSE 60–76; RESP 18–19; TEMP 97.6–98.1; O2SAT 99
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
--- NOTE | 2024-04-22 18:06 | NUR ---
CM NOTE/[facility] spoke to Reza with [facility]. Reports insurance authorization has approved medications. States he also received signed order form and has placed order to overnight IV abx. States ETA is tomorrow 12 pm. CM spoke to Genevieve with [facility]. States they discussed orders with Dr. Mendez and did not agree to manage IV abx and any issues related to picc line. CM advised Genevieve to attempt contact with Dr. Davis to secure orders from him. CM attempted to reach Dr. Davis. No answer on personal cell and unable to leave voicemail. Genevieve reported to CM that she has left messages at Dr. Davis's office and are still pending call back. CM updated patient with above. Asked patient to attempt outreach and advise office to call [facility] home health to further discuss arrangements. Plan is for discharge tomorrow if Dr. Davis agrees to sign home health orders for [facility]. CM to f/u. Addendum: 04/22/24 at 1811 by JUAN LUIS PATEL CM Amended: Links added.
--- NOTE | 2024-04-22 19:19 | PN ---
SUBJECTIVE: Comfortable, afebrile. No chest pain, palpitations. No nausea, vomiting. Continue with IV antibiotics. Pending arrangements to continue IV antibiotics, to complete 6 weeks. OBJECTIVE: GENERAL: He is awake, alert, oriented in person, place, not in distress. VITAL SIGNS: In the chart. HEENT: Normocephalic, atraumatic. LUNGS: Clear to auscultation. HEART: S1, S2 are distant. ABDOMEN: Soft, nontender. EXTREMITIES: No clubbing, cyanosis. LABORATORY DATA: Reviewed. ASSESSMENT AND PLAN: * Right leg cellulitis, improving. Continue with vancomycin, cefepime and Levaquin. * Right tibial osteomyelitis. Continue with above antibiotics, to complete 6 weeks of therapy as per ID recommendations. Plan to discharge when arrangements are completed. TID: [id number] RECEIPT: [id number]
[2024-04-23 08:00] VITALS: O2SAT 99
[2024-04-23 08:27] VITALS: BP 135/68; PULSE 65; RESP 18; TEMP 98.3
--- NOTE | 2024-04-23 10:42 | PN ---
Patient reports he is still doing well. Denies leg pain or swelling. States he is pending delivery of the antibiotics today. VSS, AF NAD A&Ox3 nonlabored breathing RLE: -incisions are clean dry and intact -no edema, no erythema -no tenderness at mid shaft Patient reports he was working on getting home health set up and pending antibiotic delivery 23-year-old male with right tibia osteomyelitis -antibiotics as per Infectious Disease -arrangements for home health as [facility] case management Vitals/Labs Vital Signs Date Time Temp Pulse Resp B/P (MAP) Pulse Ox O2 Delivery O2 Flow Rate FiO2 04/23/24 08:27 98.2 65 18 135/68 98 Room Air 04/22/24 20:00 0 21 Medications Current Medications Dextrose/Sodium Chloride 1,000 ml @ 50 mls/hr Q20H IV Last administered on 04/18/24at 15:24; Start 04/14/24 at 08:30; Stop 05/14/24 at 08:29 Acetaminophen/ Codeine Phosphate 1 tab Q4H PRN PO; Start 04/14/24 at 08:30; Stop 05/14/24 at 08:29 Acetaminophen/ Codeine Phosphate 2 tab Q4H PRN PO; Start 04/14/24 at 08:30; Stop 05/14/24 at 08:29 Magnesium Hydroxide 30 ml DAILY PRN PO; Start 04/14/24 at 08:30; Stop 05/14/24 at 08:29 Al Hydroxide/Mg Hydroxide 30 ml Q6H PRN PO; Start 04/14/24 at 08:30; Stop 05/14 at 08:29 Acetaminophen 650 mg Q6H PRN PO; Start 04/14/24 at 08:30; Stop 05/14/24 at 08:29 Levofloxacin 500 mg DAILY PO Last administered on 04/23/24at 08:25; Start 04/14/24 at 09:00; Stop 05/05/24 at 08:59 Penicillin V Potassium 500 mg BID PO Last administered on 04/14/24at 11:36; Start 04/14/24 at 09:00; Stop 04/14/24 at 13:31; Status DC Cefepime HCl 1 gm Q8H IVPB Last administered on 04/23/24at 05:04; Start 04/14/24 at 13:30; Stop 05/05/24 at 13:29 Vancomycin HCl 1 each AD IV; Start 04/14/24 at 13:30; Stop 04/28/24 at 13:29 Vancomycin HCl 500 ml @ 250 mls/hr ONCE ONCE IV Last administered on 04/14/24at 15:34; Start 04/14/24 at 14:00; Stop 04/14/24 at 15:59; Status DC Vancomycin HCl 250 ml @ 125 mls/hr Q8H IV Last administered on 04/23/24at 08:24; Start 04/14/24 at 23:00; Stop 05/05/24 at 22:59 Vancomycin HCl 500 ml @ As Directed STK-MED ONCE IV; Start 04/14/24 at 15:31; Stop 04/14/24 at 15:31; Status DC Diphenhydramine HCl 25 mg ONCE IV Last administered on 04/14/24at 16:58; Start 04/14/24 at 17:00; Stop 04/14/24 at 21:00; Status DC Diphenhydramine HCl 50 mg STK-MED ONCE .ROUTE; Start 04/14/24 at 16:54; Stop 04/14/24 at 16:55; Status DC Gadoterate Meglumine 10 mmol STK-MED ONCE IV; Start 04/14/24 at 20:02; Stop 04/14/24 at 20:03; Status DC BATSHEVA PARKER MD Apr 23, 2024 10:42
[2024-04-23 11:17] VITALS: BP 136/58; PULSE 60; RESP 16; TEMP 96.9
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
== END 2024-04-23 16:15 | disposition home or self-care (01) | DRG 540 ==
LOC: EDH 07:06 → DIRECT 07:07 → 4DH 19:56
PROVIDERS: ADMIT Student in an Organized Health Care Education/Training Program; ATTEND Student in an Organized Health Care Education/Training Program
DX: M86.8X6 Other osteomyelitis, lower leg (principal); L03.115 Cellulitis of right lower limb; E66.9 Obesity, unspecified; Z68.27 Body mass index [BMI] 27.0-27.9, adult
CPT/HCPCS: 36415; 71045; 73590; 73720; 80048; 80202; 82948; 83735; 85025; 85027; 85651; 86140; G0378; J0692; J1200; J3370; J7042; A9575

== ENCOUNTER 2024-06-17 13:11 | Emergency (ER) | payer OTHER ==
[~2024-06-17] VITALS: Ht 175.3 cm; Wt 86.6 kg
[~2024-06-17 13:11] MED LIST changes: -LEVO-70 PO
[2024-06-17 13:31] LABS: BASOPHILS # (AUTO) 0.05 K/uL (0.00-0.20); BASOPHILS % (AUTO) 0.8 % (0.0-5.0); EOSINOPHILS % (AUTO) 1.6 % (0.0-8.0); IMMATURE GRANULOCYTE ABSOLUTE 0.04 K/uL (0-1); LYMPHOCYTES # (AUTO) 1.6 K/uL (1.0-4.8); LYMPHOCYTES % (AUTO) 24.2 % (21.0-51.0); MEAN CORPUSCULAR HEMOGLOBIN 25.3 pg (27.0-33.0); MEAN CORPUSCULAR HGB CONC 31.5 g/dL (32.0-36.0); MEAN CORPUSCULAR VOLUME 80.3 fL (79-99); MONOCYTES # (AUTO) 0.7 K/uL (0.1-1.0); MONOCYTES % (AUTO) 10.4 % (3.0-13.0); NEUTROPHILS % (AUTO) 62.4 % (40.0-77.0); PLATELET COUNT (AUTO) 185 K/uL (130-400); RED BLOOD CELL COUNT(AUTO) 5.85 MIL/uL (4.50-6.20); RED CELL DISTRIBUTION WIDTH 14.1 % (11.0-15.5); WHITE BLOOD COUNT (AUTO) 6.5 K/uL (4.8-10.8)
[2024-06-17 13:40] LABS: INR 1.01 (0.85-1.15); PROTHROMBIN TIME 10.7 SEC (9.6-11.6)
[2024-06-17 13:42] LABS: PARTIAL THROMBOPLASTIN TIME 27.9 SEC (26.3-35.5)
[2024-06-17 13:43] LABS: POTASSIUM 4.1 mmol/L (3.5-5.1)
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
[2024-06-17] MEDS: ketOROlac 15MG/ML VIAL (15MG/ML) IM ONE (14:45)
[2024-06-17 14:51] VITALS: BP 120/61; PULSE 71; RESP 16; TEMP 97.9; O2SAT 98
--- NOTE | 2024-06-17 15:55 | HMCIMG ---
US VENOUS DOPPLER UNILATERAL HISTORY: DVT COMPARISON: None TECHNIQUE: Right lower extremity venous Doppler ultrasound study was performed. FINDINGS: The right common femoral, femoral, popliteal, and posterior tibial veins are visualized. Normal flow with augmentation and compressibilities are demonstrated. Right greater saphenous vein is patent. IMPRESSION: 1. No evidence of deep venous thrombosis is seen.
== END 2024-06-17 14:52 | disposition home or self-care (01) ==
LOC: EDH 13:11
DX: M79.89 Other specified soft tissue disorders (principal)
CPT/HCPCS: 99285; 93971; 80048; 85025; 85610; 85730; 36415; 96372; J1885

== ENCOUNTER → 2024-09-16 | Outpatient (CLI) | payer OTHER ==
[2024-09-16 12:16] LABS: ERYTHROCYTE SEDIMENTATION RATE 1 MM/HR (0-15)
[2024-09-16 12:19] LABS: IMMATURE GRANULOCYTE ABSOLUTE 0.06 K/uL (0-1); NUCLEATED RED BLOOD CELLS 0.0 % (0.0-0.19); PLATELET COUNT (AUTO) 169 K/uL (130-400); RED BLOOD CELL COUNT(AUTO) 5.99 MIL/uL (4.50-6.20); RED CELL DISTRIBUTION WIDTH 15.6 % (11.0-15.5); WHITE BLOOD COUNT (AUTO) 6.5 K/uL (4.8-10.8)
== END | disposition home or self-care (01) ==
LOC: LAB 10:35
PROVIDERS: ATTEND Student in an Organized Health Care Education/Training Program
DX: S82.251 Displaced comminuted fracture of shaft of right tibia (principal); X58.XXXD Exposure to other specified factors, subsequent encounter
CPT/HCPCS: 36415; 85025; 85651; 86140